=== PATIENT | female | born 1990 | race Caucasian/White ===

== ENCOUNTER 2018-08-26 19:10 | Emergency (ER) | payer MEDICAID ==
[~2018-08-26] VITALS: Ht 160 cm; Wt 89.8 kg
[2018-08-26 19:22] VITALS: Ht 160 cm; Wt 89.8 kg
[2018-08-26 21:34] LABS: UA SPECIFIC GRAVITY >=1.030 (1.005-1.035); microscopic required? YES; urine erythrocyte 1+ (NEGATIVE)
[2018-08-26 21:35] LABS: BASOPHIL % 0.5 % (0-2); PLATELET COUNT 239 x10^3mcL (130-400)
[2018-08-26 21:43] LABS: CALCIUM 7.9 mg/dL (8.5-10.1); CARBON DIOXIDE 25.9 mmol/L (21-32); CHLORIDE SERUM 104 mmol/L (98-107); CREATININE SERUM 0.6 mg/dL (0.6-1.0); GFR1 > 60 mL/min; GLUCOSE SERUM 134 mg/dL (74-106); POTASSIUM SERUM 3.6 mmol/L (3.5-5.1); SODIUM SERUM 138 mmol/L (136-145)
[2018-08-26 21:48] LABS: ALKALINE PHOSPHATASE 88 U/L (46-116); ALT/SGPT 38 U/L (14-59); AST/SGOT 21 U/L (15-37); BILIRUBIN TOTAL 0.21 mg/dL (0.20-1.00)
[2018-08-26 21:50] LABS: ALBUMIN 3.3 g/dL (3.4-5.0)
[2018-08-27 00:04] VITALS: BP 107/65
== END 2018-08-27 00:04 | disposition home or self-care (01) ==
LOC: ED 19:10
PROVIDERS: Emergency Medicine
DX: O23.41 Unspecified infection of urinary tract in pregnancy, first trimester (principal); O34.81 Maternal care for other abnormalities of pelvic organs, first trimester; O99.281 Endocrine, nutritional and metabolic diseases complicating pregnancy, first trimester; E03.9 Hypothyroidism, unspecified; N83.201 Unspecified ovarian cyst, right side; Z3A.01 Less than 8 weeks gestation of pregnancy; Z98.890 Other specified postprocedural states
CPT/HCPCS: 36415; J7030

== ENCOUNTER 2018-09-12 10:45 | Emergency (ER) | payer MEDICAID ==
[2018-09-12 11:19] VITALS: BP 123/75
[2018-09-12 12:26] LABS: BASOPHIL % 0.6 % (0-2); PLATELET COUNT 243 x10^3mcL (130-400); RED CELL DISTRIBUTION WIDTH 12.9 % (11.5-14.5)
== END 2018-09-12 14:28 | disposition home or self-care (01) ==
LOC: ED 10:45
PROVIDERS: Emergency Medicine
DX: O20.0 Threatened abortion (principal); O99.281 Endocrine, nutritional and metabolic diseases complicating pregnancy, first trimester; E03.9 Hypothyroidism, unspecified; Z98.890 Other specified postprocedural states
CPT/HCPCS: 36415

== ENCOUNTER 2019-02-23 15:34 | Emergency (ER) | payer MEDICAID ==
[~2019-02-23] VITALS: Ht 157.5 cm; Wt 95.3 kg
[2019-02-23 16:01] VITALS: Ht 157.5 cm; Wt 95.3 kg
[2019-02-23 17:07] VITALS: BP 98/57
== END 2019-02-23 17:07 | disposition home or self-care (01) ==
LOC: ED 15:34
DX: O24.419 Gestational diabetes mellitus in pregnancy, unspecified control (principal); O99.213 Obesity complicating pregnancy, third trimester; O99.283 Endocrine, nutritional and metabolic diseases complicating pregnancy, third trimester; E03.9 Hypothyroidism, unspecified; Z3A.30 30 weeks gestation of pregnancy; Z68.38 Body mass index [BMI] 38.0-38.9, adult
CPT/HCPCS: 82962